=== PATIENT | female | born 1950 | race Caucasian/White ===

== ENCOUNTER → 2024-03-04 | Outpatient (CLI) | payer MEDICARE, BC, SELFPAY ==
[2024-03-04 18:07] LABS: Basophils # (Auto) 0.1 Thou/mm3 (0.0-0.2); Basophils % (Auto) 1 % (0-2.5); Eosinophils # (Auto) 0.1 Thou/mm3 (0.0-0.5); Eosinophils % (Auto) 1 % (0-10); Hematocrit 36.3 % (36.0-46.0); Hemoglobin 11.3 g/dL (12.0-16.0); Immature Granulocytes % (Auto) 1 % (0-0); Immature Granulocytes Auto 0.05 Thou/mm3 (0.00-0.00); Lymphocytes % (Auto) 28 % (10-50); Mean Corpuscular HGB Conc 31.1 g/dl (31.0-37.0); Mean Corpuscular Hemoglobin 24.8 pg (25.0-35.0); Mean Corpuscular Volume 80 fL (80-100); Monocytes # (Auto) 0.9 Thou/mm3 (0.0-0.8); Monocytes % (Auto) 9 % (0-12); Neutrophils # (Auto) 6.4 Thou/mm3 (1.8-7.7); Neutrophils % (Auto) 61 % (37-80); Nucleated Red Blood Cell % 0 /100 WBC (0); Platelet Count 385 Thou/mm3 (140-440); Red Blood Count 4.56 Miln/mm3 (4.00-5.20); White Blood Count 10.6 Thou/mm3 (3.6-11.0)
[2024-03-04 18:21] LABS: Albumin, Serum 4.6 gm/dL (3.4-4.8); Anion Gap 8 (7-16); BUN/Creatinine Ratio 28 Ratio (12-20); Blood Urea Nitrogen 31 mg/dL (9-23); Calcium 8.1 mg/dL (8.3-10.6); Calcium (Corrected) 8.1 mg/dL (8.5-10.1); Carbon Dioxide 31.8 mMol/L (20.0-31.0); Chloride 97 mMol/L (98-107); Creatinine (Component) 1.1 mg/dL (0.6-1.3); Glucose 98 mg/dL (74-106); Osmolality,Calculated 280 (275-295); Phosphorous 5.2 mg/dL (2.4-5.1); Potassium 4.5 mMol/L (3.4-5.1); Sodium 137 mMol/L (136-145); eGFR 53 See Note
[2024-03-06 11:02] LABS: Vitamin D 25 Hydroxy Total 38.5 ng/mL (7.3-40.2)
== END | disposition home or self-care (01) ==
LOC: COPL 16:51
PROVIDERS: PCP Family Medicine; Referring Provider Internal Medicine; Visit Provider Internal Medicine
DX: I12.9 Hypertensive chronic kidney disease with stage 1 through stage 4 chronic kidney disease, or unspecified chronic kidney disease (principal); N18.31 Chronic kidney disease, stage 3a; E83.51 Hypocalcemia
CPT/HCPCS: 36415; 80069; 82306; 85025

== ENCOUNTER → 2024-03-21 | Outpatient (CLI) | payer MEDICARE, BC, SELFPAY ==
[2024-03-21 18:24] LABS: Parathyroid Hormone Intact 32.9 pg/ml (18.5-88.0)
[2024-03-21 18:28] LABS: Alanine Aminotransferase 28 U/L (10-49); Albumin, Serum 4.8 gm/dL (3.4-4.8); Albumin/Globulin Ratio 1.9 (1.2-2.2); Alkaline Phosphatase 127 U/L (46-116); Anion Gap 8 (7-16); Aspartate Amino Transferase 28 U/L (0-34); BUN/Creatinine Ratio 34 Ratio (12-20); Bilirubin,Total 0.2 mg/dL (0.3-1.2); Blood Urea Nitrogen 37 mg/dL (9-23); Calcium 8.6 mg/dL (8.3-10.6); Calcium (Corrected) 8.6 mg/dL (8.5-10.1); Carbon Dioxide 29.7 mMol/L (20.0-31.0); Chloride 97 mMol/L (98-107); Creatinine (Component) 1.1 mg/dL (0.6-1.3); Free T4 (Free Thyroxine) 1.03 ng/dL (0.89-1.76); Globulin 2.5 gm/dL (2.3-3.5); Glucose 78 mg/dL (74-106); Osmolality,Calculated 277 (275-295); Potassium 3.9 mMol/L (3.4-5.1); Sodium 135 mMol/L (136-145); Thyroid Stimulating Hormone 5.14 uIU/mL (0.55-4.78); Total Protein 7.3 gm/dL (5.7-8.2); Vitamin D 25 Hydroxy Total 39.2 ng/mL (7.3-40.2); eGFR 53 See Note
[2024-03-27 06:46] LABS: T3,Total* 68 ng/dL (76-181)
== END | disposition home or self-care (01) ==
PROVIDERS: PCP Family Medicine; Referring Provider Nurse Practitioner Family; Visit Provider Nurse Practitioner Family
DX: E21.3 Hyperparathyroidism, unspecified (principal); E06.3 Autoimmune thyroiditis
CPT/HCPCS: 36415; 80053; 82306; 83970; 84439; 84443; 84480

== ENCOUNTER 2024-04-04 16:54 | Emergency (ER) | payer MEDICARE, BC, SELFPAY ==
[2024-04-04 16:55] VITALS: PULSE 88; RESP 20; O2SAT 98
[2024-04-04 17:04] VITALS: BP 116/74; PULSE 86; RESP 20; TEMP 37.1; O2SAT 96
--- NOTE | 2024-04-04 17:33 | XR_ITS ---
Examination: PA lateral chest 2 views Technique: Upright PA lateral chest 2 views Exam date and time: April 04, 1999 2517.7 hours Comparison June 02, 2017 Indications: Fever coughing beginning 2 weeks ago. Findings: Minor prominence of ventricle Moderate hyperexpansion Mild prominence main pulmonary arteries Accentuation basilar bronchovascular markings. No lobar pneumonia Significant osteopenia Impression: COPD Basilar bronchitis pattern Suspicious for pulmonary artery hypertension
--- NOTE | 2024-04-04 17:34 | EDRME_ITS ---
Rapid Medical Screening Exam [facility] Arrival date/time: 04/04/24 16:54 74-year-old female with a history of hypertension, hypothyroidism, presents to the emergency room with a chief complaint of cough, congestion, body aches, and shortness of breath x 3 days. I have greeted and performed a focused initial assessment of this patient. A comprehensive ED assessment and evaluation of the patient, analysis of all test results, and completion of the medical decision making process will be conducted by additional ED providers. Chief Complaint: Flu Like Symptoms Vital signs: Vital Signs Temperature 98.7 F 04/04/24 17:04 Pulse Rate 86 04/04/24 17:04 Respiratory Rate 20 04/04/24 17:04 Blood Pressure 116/74 04/04/24 17:04 Pulse Oximetry (%) 96 04/04/24 17:04 Oxygen Delivery Method Room Air 04/04/24 17:04 Vital signs reviewed by provider: Yes
[2024-04-04] MEDS: ALBUTEROL/IPRATROPIUM (Duoneb) RT SOL 3 ML NEBU INH (18:11)
[2024-04-04 18:13] VITALS: PULSE 77; RESP 18; O2SAT 99
--- NOTE | 2024-04-04 18:31 | EDNOTE_ITS ---
Upper Respiratory Inf. RME/HPI General Chief Complaint: Flu Like Symptoms Stated Complaint: FLU LIKE SYMPTOMS Time Seen by Provider: 04/04/24 18:25 Arrival date/time: 04/04/24 16:54 RME / HPI RME / HPI Narrative: 74-year-old female with a history of hypertension, hypothyroidism, presents to the emergency room with a chief complaint of cough, congestion, body aches, and shortness of breath x 3 days. Severity of symptoms moderate. Patient denies any fever. Denies any other complaints. No medications taken prior to arrival. Related Data Home Medications ?Medication ?Instructions ?Recorded ?Confirmed DIAZIDE/ HCTZ 1 tab PO DAILY ##0 08/24/12 06/02/17 FUROSET 1 tab PO Q6-8 HRS ##0 06/02/17 alprazolam 0.25 mg tablet 0.25 mg PO HS ##0 08/24/12 0 06/02/17 benazepril 40 mg tablet (Lotensin) 40 mg PO BID ##0 06/02/17 cyclobenzaprine 10 mg tablet 10 mg PO O3NOKMC ##0 07/2906/02/17 (Flexeril) levothyroxine 75 mcg tablet 75 mcg PO DAily ##0 06/02/17 (Levoxyl) potassium chloride 20 mEq 20 meq PO BID ##0 08/24/12 0 06/02/17 tablet,extended release(part/cryst) warfarin 10 mg tablet (Coumadin) 10 mg PO DAILY ##0 06/02/17 amlodipine 10 mg tablet (Norvasc) 10 mg PO QDAY #0 tab s 09/10/13 06/02/17 warfarin 5 mg tablet (Coumadin) See Rx Instructions .R oute .COMPLEX 06/02/17 Previous Rx's ?Medication ?Instructions ?Recorded azithromycin 250 mg tablet See Rx Instructions PO .COM PLEX #6 01/18/18 tabs benzonatate 100 mg capsule 100 mg PO QID PRN cough #60 caps 01/18/18 (Tessalon Perles) avgjwyfbcc-rqmrgwuaentdv-uyazylsx 1 cap PO Q4H PRN ryan n #4 caps 01/18/18 50 mg-300 mg-40 mg capsule (Fioricet) albuterol sulfate 2.5 mg/3 mL 2.5 mg (3 mL) inhalation Q4H PRN 04/04/24 (0.083 %) solution for nebulization shortness of breat h or wheezing #90 mL albuterol sulfate 2.5 mg/3 mL 2.5 mg (3 mL) inhalation QID PRN 04/04/24 (0.083 %) solution for nebulization shortness of breat h or wheezing #90 mL Allergies Allergy/AdvReac Type Severity Reaction Status Date / Time aspirin Allergy Severe GI UPSET Verified 07/04/22 09:41 codeine Allergy Severe GI UPSET Verified 07/04/22 09:41 meperidine Allergy Severe GI UPSET Verified 07/04/22 09:41 morphine Allergy Severe INSANE Verified 07/04/22 09:41 NSAIDS (Non-Steroidal Allergy Severe GI UPSET Verified 07/04/22 09:41 Anti-Inflamma prednisone Allergy Severe Gastrointestinal Verified 07/04/22 09:41 Upset Review of Systems Review of Systems Narrative Review of Systems: Review of system reviewed and within normal limits except mentioned in HPI ED Exam Narrative Physical exam: VITAL SIGNS: Reviewed. GENERAL APPEARANCE: Alert and interactive, follows commands, no acute distress, HEAD AND FACE: Non-traumatic. ENT: PERRL, pink conjunctivitis, eyelid no trauma, Mucous membrane moist. NECK: Supple, nontender, no nuchal rigidity. CHEST: No tenderness, no crepitus, no paradoxical movement, no retractions. LUNGS:Symmetric, no rales, no wheezing, no ronchi, no stridor, decreased breath sounds bilaterally. HEART: Regular rate, regular rhythm, no murmur, no gallops. ABDOMEN: Soft, positive bowel sounds, nondistended, no guarding, nontender, no rebound, no masses, RECTAL: Deferred. GENITAL: Deferred. NEUROLOGICAL: Gross motor function intact sensory function intact, Appropriate for age. MUSCULOSKELETAL: low back nontender, full range of motion. EXTREMITIES: Nontender, full range of motion. SKIN: Color pink, dry, no rash, no lacerations, no abrasions, no contusions. LYMPHATICS: Deferred. Course Quality Measures none Orders Category Date Time Status Bedside COVID-19 Antigen Test NOW Care 04/04/24 17:33 Active Bedside Influenza A&B Antigen Test NOW Care 04/04/24 17:33 Active XR chest 2V Stat Exams 04/04/24 17:33 Completed Albuterol/Ipratr Rt Winnie [Duoneb Rt Winnie] Med 04/04/24 17:33 Discontinued 3 ml INH X1 ONE Dexamethasone Inj [Decadron Inj] Med 04/04/24 18:30 Discontinued 10 mg IM X1 ONE DiphenhydrAMINE [Benadryl] Med 04/04/24 18:30 Discontinued 25 mg PO X1 ONE Famotidine [Pepcid] Med 04/04/24 18:30 Discontinued 40 mg PO X1 ONE Vital Signs Vital signs: Vital Signs Temperature 98.7 F 04/04/24 17:04 Pulse Rate 86 04/04/24 17:04 Respiratory Rate 20 04/04/24 17:04 Blood Pressure 116/74 04/04/24 17:04 Pulse Oximetry (%) 96 04/04/24 17:04 Oxygen Delivery Method Room Air 04/04/24 17:04 Upper Respiratory Infection MDM Narrative MDM Narrative:: 74-year-old female with a history of hypertension, hypothyroidism, presents to the emergency room with a chief complaint of cough, congestion, body aches, and shortness of breath x 3 days. Severity of symptoms moderate. Patient denies any fever. Denies any other complaints. No medications taken prior to arrival. Patient tested negative for influenza and COVID-19. Chest x-ray came back with COPD pattern. Otherwise no pneumonia no infiltrates no hemothorax or pneumothorax noted. Patient was given DuoNeb breathing treatment and Decadron IM with significant pulmonary symptoms. Currently satting 99% on room air Patient appears nontoxic and hemodynamically stable. Patient discharged home and instructed to follow-up with primary care provider in 24 to 48 hours. Instructed to return to the emergency department immediately if worsening of symptoms Patient data External records reviewed:: None Clinical information provided by:: none Social determinants that could affect healthcare access:: none Patient has the following chronic illnesses:: COPD How is presenting disease/condition affected by chronic disease/condition?: exacerbated by Evaluation data The following diagnostics were reviewed and interpreted by me:: lab results and radiology exam(s) Lab and/or radiology exams considered but not ordered:: None Interpretation Summary: See results MDM Medications / Prescriptions Medications or Prescriptions considered but not ordered:: None Medication administrations:: Medication Administration History Discontinued Medications Albuterol/Ipratropium (Albuterol/Ipratropium (Duoneb) Rt Winnie 3 Ml Nebu) 3 ml INH X1 ONE Stop: 04/04/24 17:34 Last Admin: 04/04/24 18:11 Dose: 3 ml Documented By: MARANDA Dexamethasone Sodium Phosphate (Dexamethasone Sod Phos Inj 10 Mg/Ml Vial) 10 mg IM X1 ONE Stop: 04/04/24 18:31 Last Admin: 04/04/24 18:49 Dose: 10 mg Documented By: OA Diphenhydramine HCl (Diphenhydramine 25 Mg Capsule) 25 mg PO X1 ONE Stop: 04/04/24 18:31 Last Admin: 04/04/24 18:50 Dose: Not Given Documented By: OA Non-Admin Reason: Patient Refused Famotidine (Famotidine 20 Mg Tablet) 40 mg PO X1 ONE Stop: 04/04/24 18:31 Last Admin: 04/04/24 18:50 Dose: Not Given Documented By: OA Non-Admin Reason: Patient Refused DuoNeb, Decadron Consultations Consultation(s) initiated? (list below): No Diagnosis Upper Respiratory Differential Diagnosis: upper respiratory infection and influenza Most likely diagnosis given after review of the tests above:: Shortness of breath Admission Indicated Admission indicated?: not indicated Explain why admission is indicated or not indicated:: Stable Admission Request Was there a request for admission?: No Disposition Plan Disposition Plan: Discharge Discharge Attestation Discharge Attestation: The patient was given an opportunity to ask questions and understood the discharge instructions. Discharge instructions specifically effects, indications for sooner follow up or return to the emergency department, and the expected course of current diagnosis. Patient condition: Stable Discharge Plan Plan Patient Disposition: HOME (Self Care) Disposition Comment: stable Prescriptions/Referrals Prescriptions/Med Rec: New albuterol sulfate 2.5 mg /3 mL (0.083 %) solution for nebulization 2.5 mg inhalation Q4H PRN (Reason: shortness of breath or wheezing) Qty: 90 0RF albuterol sulfate 2.5 mg /3 mL (0.083 %) solution for nebulization 2.5 mg inhalation QID PRN (Reason: shortness of breath or wheezing) Qty: 90 0RF No Action cyclobenzaprine [Flexeril] 10 MG tablet 10 mg PO [id number] Qty: 0 warfarin [Coumadin] 10 MG tablet 10 mg PO DAILY Qty: 0 levothyroxine [Levoxyl] 75 MCG tablet 75 mcg PO DAily Qty: 0 alprazolam 0.25 MG tablet 0.25 mg PO HS Qty: 0 potassium chloride 20 MEQ tablet,ER particles/crystals 20 meq PO BID Qty: 0 benazepril [Lotensin] 40 MG tablet 40 mg PO BID Qty: 0 FUROSET 1 tab PO Q6-8 HRS Qty: 0 DIAZIDE/ HCTZ 1 tab PO DAILY Qty: 0 amlodipine [Norvasc] 10 MG tablet 10 mg PO QDAY Qty: 0 warfarin [Coumadin] 5 mg Tablet See Rx Instructions .ROUTE .COMPLEX Rx Instructions: 5 mg orally azithromycin 250 mg tablet See Rx Instructions .ROUTE .COMPLEX Qty: 6 0RF Rx Instructions: take 500 mg first day then 250 mg for next 4 days benzonatate [Tessalon Perles] 100 mg capsule 100 mg PO QID PRN (Reason: cough) Qty: 60 0RF befvawvzfb-rncaljqappbzi-jluq [Fioricet] 50-300-40 mg capsule 1 cap PO Q4H PRN (Reason: pain) Qty: 4 0RF Problem List Clinical Impression: Shortness of breath Patient/Caregiver Discharge Instructions Discharge Activity: activity as tolerated Education Materials: ED Shortness of Breath (Dyspnea) Additional Instructions: Thank you for the opportunity for serving you today. You are stable for discharged . You are advised to: Follow-up with your PCP in 1 to 2 days Return to ED for worsening of symptoms Increase oral fluids Take medication as prescribed Print Language: Uzbek Stand Alone Forms: Nadia Award Info., Patient Portal Info Letter PA/STATION INSTALLER AND REPAIRER Supervising Physician PA/STATION INSTALLER AND REPAIRER Supervising Physician: MD Antione
[2024-04-04] MEDS: DEXAMETHASONE SOD PHOS INJ 10 MG/ML VIAL IM (18:49)
== END 2024-04-04 19:41 | disposition home or self-care (01) ==
LOC: SERX 19:37
PROVIDERS: Emergency Provider Emergency Medicine; PCP Family Medicine
DX: R06.02 Shortness of breath (principal); J44.9 Chronic obstructive pulmonary disease, unspecified; I10 Essential (primary) hypertension; E03.9 Hypothyroidism, unspecified
CPT/HCPCS: 71046; 94640; 96372; 99283; A9270; J1100

== ENCOUNTER → 2024-05-07 | Outpatient (CLI) | payer MEDICARE, BC, SELFPAY ==
[2024-05-07 18:04] LABS: Parathyroid Hormone Intact 39.5 pg/ml (18.5-88.0)
[2024-05-07 18:06] LABS: Albumin, Serum 4.3 gm/dL (3.4-4.8); Anion Gap 6 (7-16); BUN/Creatinine Ratio 29 Ratio (12-20); Blood Urea Nitrogen 32 mg/dL (9-23); Calcium 8.7 mg/dL (8.3-10.6); Calcium (Corrected) 8.7 mg/dL (8.5-10.1); Carbon Dioxide 31.4 mMol/L (20.0-31.0); Chloride 99 mMol/L (98-107); Creatinine (Component) 1.1 mg/dL (0.6-1.3); Glucose 72 mg/dL (74-106); Osmolality,Calculated 277 (275-295); Phosphorous 4.8 mg/dL (2.4-5.1); Potassium 5.1 mMol/L (3.4-5.1); Sodium 136 mMol/L (136-145); eGFR 53 See Note
== END | disposition home or self-care (01) ==
LOC: COPL 16:53
PROVIDERS: PCP Family Medicine; Referring Provider Internal Medicine; Visit Provider Internal Medicine
DX: I12.9 Hypertensive chronic kidney disease with stage 1 through stage 4 chronic kidney disease, or unspecified chronic kidney disease (principal); N18.31 Chronic kidney disease, stage 3a; E83.51 Hypocalcemia; D50.9 Iron deficiency anemia, unspecified
CPT/HCPCS: 36415; 80069; 83970

== ENCOUNTER → 2024-10-07 | Outpatient (CLI) | payer MEDICARE, BC, SELFPAY ==
[2024-10-07 17:47] LABS: Basophils # (Auto) 0.1 Thou/mm3 (0.0-0.2); Basophils % (Auto) 1 % (0-2.5); Eosinophils # (Auto) 0.1 Thou/mm3 (0.0-0.5); Eosinophils % (Auto) 1 % (0-10); Hematocrit 36.5 % (36.0-46.0); Hemoglobin 11.4 g/dL (12.0-16.0); Immature Granulocytes Auto 0.05 Thou/mm3 (0.00-0.00); Lymphocytes # (Auto) 3.0 Thou/mm3 (1.0-4.8); Lymphocytes % (Auto) 27 % (10-50); Mean Corpuscular HGB Conc 31.2 g/dl (31.0-37.0); Mean Corpuscular Hemoglobin 24.5 pg (25.0-35.0); Mean Corpuscular Volume 78 fL (80-100); Monocytes # (Auto) 1.0 Thou/mm3 (0.0-0.8); Monocytes % (Auto) 9 % (0-12); Neutrophils # (Auto) 6.8 Thou/mm3 (1.8-7.7); Neutrophils % (Auto) 61 % (37-80); Nucleated Red Blood Cell # 0.00 Thou/mm3 (0.00-0.00); Nucleated Red Blood Cell % 0 /100 WBC (0); Platelet Count 392 Thou/mm3 (140-440); RDW Standard Deviation 47.1 fL (36.4-46.3); Red Blood Count 4.66 Miln/mm3 (4.00-5.20); White Blood Count 11.0 Thou/mm3 (3.6-11.0)
[2024-10-07 18:01] LABS: Parathyroid Hormone Intact 38.5 pg/ml (18.5-88.0)
[2024-10-07 18:02] LABS: Iron 18 mcg/dL (50-170); Percent Iron Saturation 4 % (20-55); Total Iron Binding Capacity 403 mcg/dL (250-425); Unsaturated Iron Binding 385 (225-295)
[2024-10-07 18:05] LABS: Vitamin D 25 Hydroxy Total 38.4 ng/mL (7.3-40.2)
[2024-10-07 18:07] LABS: Alanine Aminotransferase 17 U/L (10-49); Albumin, Serum 4.4 gm/dL (3.4-4.8); Albumin/Globulin Ratio 2.0 (1.2-2.2); Alkaline Phosphatase 100 U/L (46-116); Anion Gap 11 (7-16); Aspartate Amino Transferase 26 U/L (0-34); BUN/Creatinine Ratio 29 Ratio (12-20); Bilirubin,Total 0.2 mg/dL (0.3-1.2); Blood Urea Nitrogen 32 mg/dL (9-23); Calcium 8.1 mg/dL (8.3-10.6); Calcium (Corrected) 8.1 mg/dL (8.5-10.1); Carbon Dioxide 28.2 mMol/L (20.0-31.0); Chloride 97 mMol/L (98-107); Creatinine (Component) 1.1 mg/dL (0.6-1.3); Free T4 (Free Thyroxine) 1.16 ng/dL (0.89-1.76); Globulin 2.2 gm/dL (2.3-3.5); Glucose 85 mg/dL (74-106); Osmolality,Calculated 277 (275-295); Phosphorous 5.4 mg/dL (2.4-5.1); Potassium 3.8 mMol/L (3.4-5.1); Sodium 136 mMol/L (136-145); Thyroid Stimulating Hormone 3.69 uIU/mL (0.55-4.78); Total Protein 6.6 gm/dL (5.7-8.2); eGFR 53 See Note
[2024-10-11 06:45] LABS: T3,Total* 79 ng/dL (76-181)
== END | disposition home or self-care (01) ==
LOC: COPL 16:41
PROVIDERS: PCP Family Medicine; Referring Provider Internal Medicine; Visit Provider Nurse Practitioner Family
DX: E06.3 Autoimmune thyroiditis (principal); E21.3 Hyperparathyroidism, unspecified; I12.9 Hypertensive chronic kidney disease with stage 1 through stage 4 chronic kidney disease, or unspecified chronic kidney disease; N18.31 Chronic kidney disease, stage 3a; D50.9 Iron deficiency anemia, unspecified
CPT/HCPCS: 36415; 80053; 82306; 83540; 83550; 83970; 84100; 84439; 84443; 84480; 85025

== ENCOUNTER 2024-12-25 08:35 | Inpatient (IN) | payer MEDICARE, BC, SELFPAY ==
[2024-12-25] VITALS (10 sets, daily range): BP systolic 121–152; BP diastolic 72–95; PULSE 67–94; RESP 16–99; TEMP 36.6–37.1; O2SAT 96–97; BMI 34.7
--- NOTE | 2024-12-25 08:43 | EKG_ITS ---
[facility] Test Date: 2024-12-25 Pat Name: SONU STRONG Department: Room: - Gender: Female Die Cast Operator: : [id number] Requested By: Edwardo Tirado Order Number: [id number] Reading MD: Edwardo Tirado Measurements Intervals [place] Rate: 76 P: 27 SD: 172 QRS: 1 QRSD: 104 T: 31 QT: 412 QTc: 465 Interpretive Statements SINUS RHYTHM WITH OCCASIONAL VENTRICULAR PREMATURE COMPLEXES POSSIBLE LEFT ATRIAL ENLARGEMENT [-0.1mV P-WAVE IN V1/V2] Compared to ECG 07/04/2022 10:20:27 Ventricular premature complex(es) now present /store/S0/[id number]/ecg/[id number].pdf
--- NOTE | 2024-12-25 08:43 | XR_ITS ---
EXAMINATION: AP chest single view TECHNIQUE: AP portable upright chest single view Date and time: December 25, 2024, 0928 hours, comparison April 04, 2024 INDICATIONS: Shortness of breath syncopal episode today. FINDINGS: Fat pad at the right cardiophrenic angle Normal heart size No pneumonia or pulmonary edema Prominent osteopenia IMPRESSION: No active disease
--- NOTE | 2024-12-25 08:43 | XR_ITS ---
Examination: CT brain head without contrast. 2-D sagittal coronal reconstructions Date and time of exam: December 25, 2024, 0905 hours INDICATIONS: Syncopal episode this morning CTDI: vol (mGy): 51.3 DLP: (mGycm): 1025 Technique: Multiple CT axial sections of the brain have been obtained, 5 mm slice thickness. Contrast has not been administered. 2-D sagittal, coronal reconstructions have been obtained Low dose protocols were performed. One or more of the following dose reduction techniques were used; automated exposure control, adjustment of the mA and/or KV according to patient size, use of iterative reconstruction technique. Findings: No significant ventricular enlargement. Intra-axial or extra-axial hemorrhage density is not seen. No mass effect or midline shift Basal cisterns are not remarkable. Fourth ventricle is midline. Cranial vault intact. Impression: Negative for acute hemorrhage, mass effect or midline shift Advise clinical correlation and follow-up accordingly
--- NOTE | 2024-12-25 08:44 | PD.EDSYNC ---
ED Syncope RME/HPI General Chief Complaint: Dizziness Stated Complaint: DIZZINESS Time Seen by Provider: 12/25/24 08:58 Arrival date/time: 12/25/24 08:35 RME / HPI RME / HPI narrative: See [facility] for Dr. Hughes's HPI documentation. Related Data Home Medications ?Medication ?Instructions ?Recorded ?Confirmed DIAZIDE/ HCTZ 1 tab PO DAILY ##0 08/24/12 06/02/17 FUROSET 1 tab PO Q6-8 HRS ##0 08/24/12 06/02/17 alprazolam 0.25 mg tablet 0.25 mg PO HS ##0 08/24/12 06/02/17 benazepril 40 mg tablet (Lotensin) 40 mg PO BID ##0 08/24/12 06/02/17 cyclobenzaprine 10 mg tablet 10 mg PO [id number] ##0 08/24/12 06/02/17 (Flexeril) levothyroxine 75 mcg tablet 75 mcg PO DAily ##0 08/24/12 06/02/17 (Levoxyl) potassium chloride 20 mEq 20 meq PO BID ##0 08/24/12 06/02/17 tablet,extended release(part/cryst) warfarin 10 mg tablet (Coumadin) 10 mg PO DAILY ##0 08/24/12 06/02/17 amlodipine 10 mg tablet (Norvasc) 10 mg PO QDAY #0 tabs 09/10/13 06/02/17 warfarin 5 mg tablet (Coumadin) See Rx Instructions .Route .COMPLEX 06/02/17 06/02/17 Previous Rx's ?Medication ?Instructions ?Recorded azithromycin 250 mg tablet See Rx Instructions PO .COMPLEX #6 01/18/18 tabs benzonatate 100 mg capsule 100 mg PO QID PRN cough #60 caps 01/18/18 (Tessalon Perldeborah) jkhwwxnsrh-juqljmwlelvij-sfrlfypj 1 cap PO Q4H PRN pain #4 caps 01/18/18 50 mg-300 mg-40 mg capsule (Fioricet) albuterol sulfate 2.5 mg/3 mL 2.5 mg (3 mL) inhalation Q4H PRN 04/04/24 (0.083 %) solution for nebulization shortness of breath or wheezing #90 mL albuterol sulfate 2.5 mg/3 mL 2.5 mg (3 mL) inhalation QID PRN 04/04/24 (0.083 %) solution for nebulization shortness of breath or wheezing #90 mL Allergies Allergy/AdvReac Type Severity Reaction Status Date / Time aspirin Allergy Severe GI UPSET Verified 07/04/22 09:41 codeine Allergy Severe GI UPSET Verified 07/04/22 09:41 meperidine Allergy Severe GI UPSET Verified 07/04/22 09:41 morphine Allergy Severe INSANE Verified 07/04/22 09:41 NSAIDS (Non-Steroidal Allergy Severe GI UPSET Verified 07/04/22 09:41 Anti-Inflamma prednisone Allergy Severe Gastrointestinal Verified 07/04/22 09:41 Upset Review of Systems Review of Systems Systems Reviewed: All systems reviewed, normal except as documented Past Medical History Past Medical History NEUROLOGIC: Positive Cerebrovascular Accident CARDIAC: Positive Hypertension ENDOCRINE: Positive Hypothyroidism Surgical History SURGICAL: Positive Endocrine Surgery, Knee Sx and Hysterectomy Social History SMOKING STATUS: Never smoker ED Exam Narrative Physical exam: See MDM for Dr. Hughes's physical exam documentation. Course Quality Measures none Orders Category Date Time Status Bedside COVID-19 Antigen Test NOW Care 12/25/24 08:41 Active COVID-19 Screening Questionnaire NOW Care 12/25/24 11:39 Active Decision to Admit X1 Care 12/25/24 11:39 Active EKG (ED ONLY) *Do not use* NOW Care 12/25/24 08:43 Completed Orthostatic Vitals NOW Care 12/25/24 08:41 Active Saline [Insert IV] NOW Care 12/25/24 08:41 Active Straight [In and Out Catheter] X1 Care 12/25/24 08:41 Active Consult to Cardiology Stat Cons 12/25/24 11:10 Ordered CA echo doppler complete Stat Exams 12/25/24 11:[address] head/brain wo con Stat Exams 12/25/24 08:43 Completed EKG (ED Only) Stat Exams 12/25/24 08:43 Draft XR chest 1V portable Stat Exams 12/25/24 08:43 Completed BNP [B-Type Natriuretic Peptide] Stat Lab 12/25/24 09:13 Completed Beta Hydroxybutyrate Stat Lab 12/25/24 09:13 Completed Bilirubin,Direct Stat Lab 12/25/24 09:13 Completed Blood Culture (Lab) Stat Lab 12/25/24 09:26 Received CBC Stat Lab 12/25/24 09:13 Completed CMP [Comprehensive Metabolic Panel] Stat Lab 12/25/24 09:13 Completed CRP [C-Reactive Protein] Stat Lab 12/25/24 09:13 Completed D-Dimer Stat Lab 12/25/24 09:13 Completed ESR [Sed Rate (ESR)] Stat Lab 12/25/24 09:13 Completed Influenza A & B Rapid Panel Stat Lab 12/25/24 09:26 Completed Lactate (Lactic Acid) Stat Lab 12/25/24 09:13 Completed Lipase Stat Lab 12/25/24 09:13 Completed Magnesium Stat Lab 12/25/24 09:13 Completed PT [Prothrombin Time with INR] Stat Lab 12/25/24 09:13 Completed PTT [Partial Thromboplastin Time] Stat Lab 12/25/24 09:13 Completed Procalcitonin Stat Lab 12/25/24 09:13 Completed TSH [Thyroid Stimulating Hormone] Stat Lab 12/25/24 09:13 Completed Troponin I Stat Lab 12/25/24 09:13 Completed UA, C/S IF [Urinalysis, C/S if Indicated] Stat Lab 12/25/24 10:38 Completed Urine Culture Stat Lab 12/25/24 10:38 Received ALPRazoLAM [Xanax] Med 12/25/24 08:42 Discontinued 0.25 mg PO X1 ONE Aspirin Chew Med 12/25/24 11:08 Discontinued 324 mg PO X1 ONE Aspirin [Ecotrin] Med 12/26/24 09:00 Active 81 mg PO QDAY Atorvastatin Calcium [Lipitor] Med 12/25/24 21:00 Active 80 mg PO HS Heparin/D5w 25K 250 ML Ivpb [Heparin in D5w Ivpb] Med 12/25/24 11:30 Active 25,000 unit in 250 ml IV 12 units/kg/hr Metoprolol Tartrate [Lopressor] Med 12/25/24 11:45 Active 25 mg PO BID Ondansetron Inj [Zofran Inj] Med 12/25/24 08:42 Discontinued 4 mg IVP X1 ONE Sodium Chloride 0.9% 1000 ml [Ns] 1,000 ml Med 12/25/24 08:42 Discontinued IV 999 mls/hr cefTRIAXone/D5w 1gm IV premix [Rocephin/D5w 1gm IV Med 12/25/24 11:16 Discontinued premix] 1 gm in 50 ml IV X1 Vital Signs Vital signs: Vital Signs Temperature 98 F 12/25/24 09:21 Pulse Rate 80 12/25/24 09:21 Respiratory Rate 18 12/25/24 09:21 Blood Pressure 136/85 H 12/25/24 09:21 Pulse Oximetry (%) 96 12/25/24 09:21 Oxygen Delivery Method Room Air 12/25/24 09:21 Pulse ox is 96% on room air which is adequate. Syncope MDM Narrative MDM Narrative:: This section includes all my notes and documentations, including HPI, PE, and ED course. 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 It is possible she had a complete syncopal episode. While sitting, she had sudden multiple symptoms, including headache and dizziness and chest tightness and palpitations. She didn't fall. She feels moderately better currently. No speech or visual impairment. No asymmetrical loss of power in the arms or legs. No other complaints. ROS: All negative except as documented in HPI. Physical Exam: General: Alert and oriented. Appears anxious. Eyes: Conjunctivae and lids clear. EOMI. PERRL. ENT: No nasal congestion. Neck: Supple. No carotid bruit. No JVD. Heart: RRR. Lungs: No respiratory distress. Good air movement. No rhonchi, wheezing, rales. Abdomen: Soft and nontender. Legs: No clubbing, cyanosis, edema. Skin: Warm and dry. Neuro: Alert and oriented X 3. Cranial Nerves II-XII grossly intact. No peripheral motor deficits. I reviewed all diagnostic test results: My interpretation of the EKG is: Sinus rhythm (76 bpm) with nonspecific ST-T changes. My interpretation of the chest x-ray is: NAD. My review of the CT report is: NAD. Blood tests remarkable for troponin 0.114. UA showed positive nitrite, positive leukocyte esterase, 41 WBC, and bacteria. Covid/Influenza are negative. At this point, diagnoses include: NSTEMI UTI Treatment here included: IV fluid Oral Xanax 0.25 mg as a trial prior to diagnostic tests. Rocephin 1 gm IV Heparin drip Patient felt better. 11:10 I discussed the case with linotype machinist apprentice Dr. Zaragoza. About the presentation and exam and diagnostics and treatments here. And need of further care in the hospital. Recommended holding the Warfarin and starting patient on Heparin drip (not heparin bolus). 11:15 I discussed the case with our hospitalist. About the presentation and exam and diagnostics and treatments here. And need of further care in the hospital. Will accept the patient. Edwardo Hughes MD Patient data External records reviewed:: [facility] previous records Clinical information provided by:: patient Social determinants that could affect healthcare access:: none Patient has the following chronic illnesses:: Hypertension, hypothyroidism How is presenting disease/condition affected by chronic disease/condition?: exacerbated by Evaluation data The following diagnostics were reviewed and interpreted by me:: lab results, radiology exam(s) and EKG tracing(s) (My interpretation of the EKG is: Sinus rhythm (76 bpm) with nonspecific ST-T changes. Edwardo Hughse MD) Lab and/or radiology exams considered but not ordered:: None Interpretation Summary: I reviewed all diagnostic test results: My interpretation of the EKG is: Sinus rhythm (76 bpm) with nonspecific ST-T changes. My interpretation of the chest x-ray is: NAD. My review of the CT report is: NAD. Blood tests remarkable for troponin 0.114. UA showed positive nitrite, positive leukocyte esterase, 41 WBC, and bacteria. Covid/Influenza are negative. Medications / Prescriptions Medications or Prescriptions considered but not ordered:: None Medication administrations:: Medication Administration History Acetaminophen (Acetaminophen 325 Mg Tablet) 650 mg PO Q6H PRN PRN Reason: Fever >101.5 Stop: 01/24/25 11:59 Aspirin (Aspirin Ec 81 Mg Tabec) 81 mg PO QDAY JIMMY Stop: 01/25/25 08:59 Atorvastatin Calcium (Atorvastatin Calcium 20 Mg Tablet) 80 mg PO HS JIMMY Stop: 01/24/25 20:59 Heparin Sodium/Dextrose (Heparin In D5w Ivpb) 25,000 unit in 250 mls @ 12.791 mls/hr IV .[id number] JIMMY; Protocol Stop: 01/08/25 11:29 Last Admin: 12/25/24 12:09 Dose: 12 units/kg/hr, 12.791 mls/hr Documented By: EF Co-signed By: MILLER Ceftriaxone Sodium/Dextrose (Rocephin/D5w 1gm Iv Premix) 1 gm in 50 mls @ 100 mls/hr IV QDAY [facility] Stop: 01/02/25 08:59 Metoprolol Tartrate (Metoprolol Tartrate 25 Mg Tablet) 25 mg PO BID [facility] Stop: 01/24/25 11:44 Last Admin: 12/25/24 12:10 Dose: 25 mg Documented By: EF Ondansetron HCl (Ondansetron Inj 2 Mg/Ml Inj 2 Ml) 4 mg IVP Q6H PRN; Protocol PRN Reason: NAUSEA OR VOMITING Stop: 01/24/25 11:59 Pantoprazole Sodium (Pantoprazole 40 Mg Tablet) 40 mg PO QDAY [facility] Stop: 01/25/25 08:59 Discontinued Medications Alprazolam (Alprazolam 0.25 Mg Tablet) 0.25 mg PO X1 ONE Stop: 12/25/24 08:43 Last Admin: 12/25/24 09:40 Dose: 0.25 mg Documented By: EF Aspirin (Aspirin 81 Mg Chew) 324 mg PO X1 ONE Stop: 12/25/24 11:09 Last Admin: 12/25/24 11:22 Dose: Not Given Documented By: EF Non-Admin Reason: Cancelled by Provider Sodium Chloride (Ns) 1,000 mls @ 999 mls/hr IV .Q1H1M ONE Stop: 12/25/24 09:42 Last Infusion: 12/25/24 10:41 Dose: Infused Documented By: Admin: 12/25/24 09:40 Dose: 999 mls/hr Documented By: EF Ceftriaxone Sodium/Dextrose (Rocephin/D5w 1gm Iv Premix) 1 gm in 50 mls @ 100 mls/hr IV X1 ONE Stop: 12/25/24 11:45 Last Infusion: 12/25/24 12:02 Dose: Infused Documented By: Admin: 12/25/24 11:28 Dose: 100 mls/hr Documented By: EF Ondansetron HCl (Ondansetron Inj 2 Mg/Ml Inj 2 Ml) 4 mg IVP X1 ONE; Protocol Stop: 12/25/24 08:43 Last Admin: 12/25/24 09:43 Dose: Not Given Documented By: EF Non-Admin Reason: Patient Refused Treatment here from me included: IV fluid Oral Xanax 0.25 mg as a trial prior to diagnostic tests. Rocephin 1 gm IV Heparin drip Consultations Consultation(s) initiated? (list below): Yes Consultation #1 (Physician, Specialty, Details): I discussed the case with linotype machinist apprentice Dr. Zaragoza. About the presentation and exam and diagnostics and treatments here. And need of further care in the hospital. Recommended holding the Warfarin and starting patient on Heparin drip (not heparin bolus). Time: 11:10 Consultation #2 (Physician, Specialty, Details): I discussed the case with our hospitalist. About the presentation and exam and diagnostics and treatments here. And need of further care in the hospital. Will accept the patient. Time: 11:15 Diagnosis Syncope Differential Diagnosis: syncope due to orthostatic hypotension, vasovagal syncope, pulmonary embolism and dehydration Most likely diagnosis given after review of the tests above:: NSTEMI UTI Admission Indicated Admission indicated?: indicated Explain why admission is indicated or not indicated:: NSTEMI Admission Request Was there a request for admission?: Yes Admission Attestation Admission request attestation: Discussed case with Hospitalist service regarding admission. Discussed patients ED course, exam findings, labs, and radiology results. Agreed to accept the patient for admission. Disposition Plan Disposition Plan: Admit Critical Care Time Critical Care Time Critical Care Time: Yes Total Critical Care Time (min.): 35 Attestation: Due to a high probability of clinically significant, life threatening deterioration, the patient required my highest level of preparedness to intervene emergently and I personally spent this critical care time directly and personally managing the patient. This critical care time included obtaining a history; examining the patient; ordering and review of studies; arranging urgent treatment with development of a management plan; evaluation of patient's response to treatment; frequent reassessment; and discussions with family and other providers. It was exclusive of separately billable procedures and treating other patients and teaching time. Edwardo Hughes MD Discharge Plan Plan Patient Disposition: Admit Acute Care w/in Hospital Problem List Clinical Impression: Non-ST elevation [place] (NSTEMI), UTI (urinary tract infection)
[2024-12-25 09:23] LABS: Lactate (Lactic Acid) 3.4 mMol/L (0.4-2.0)
[2024-12-25 09:25] LABS: Basophils # (Auto) 0.1 Thou/mm3 (0.0-0.2); Basophils % (Auto) 1 % (0-2.5); Eosinophils # (Auto) 0.1 Thou/mm3 (0.0-0.5); Eosinophils % (Auto) 1 % (0-10); Hematocrit 34.7 % (36.0-46.0); Hemoglobin 10.6 g/dL (12.0-16.0); Immature Granulocytes Auto 0.04 Thou/mm3 (0.00-0.00); Lymphocytes # (Auto) 2.6 Thou/mm3 (1.0-4.8); Lymphocytes % (Auto) 30 % (10-50); Mean Corpuscular HGB Conc 30.5 g/dl (31.0-37.0); Mean Corpuscular Hemoglobin 24.0 pg (25.0-35.0); Mean Corpuscular Volume 79 fL (80-100); Monocytes # (Auto) 0.8 Thou/mm3 (0.0-0.8); Monocytes % (Auto) 9 % (0-12); Neutrophils # (Auto) 5.1 Thou/mm3 (1.8-7.7); Neutrophils % (Auto) 59 % (37-80); Nucleated Red Blood Cell # 0.00 Thou/mm3 (0.00-0.00); Nucleated Red Blood Cell % 0 /100 WBC (0); Platelet Count 343 Thou/mm3 (140-440); RDW Standard Deviation 48.5 fL (36.4-46.3); Red Blood Count 4.42 Miln/mm3 (4.00-5.20); White Blood Count 8.6 Thou/mm3 (3.6-11.0)
[2024-12-25] MEDS: SODIUM CHLORIDE 0.9% 1000 ML 1,000 ML 999 ML IV (09:40)
[2024-12-25 09:44] LABS: B-Type Natriuretic Peptide 60 pg/mL (0-100)
[2024-12-25 09:50] LABS: INR 3.8 (0.9-1.3); Partial Thromboplastin Time 45.1 Seconds (22.0-36.0)
[2024-12-25 09:58] LABS: Prothrombin Time 36.4 Seconds (9.0-12.2)
[2024-12-25 10:00] LABS: Alanine Aminotransferase 12 U/L (10-49); Albumin, Serum 4.2 gm/dL (3.4-4.8); Albumin/Globulin Ratio 2.1 (1.2-2.2); Alkaline Phosphatase 107 U/L (46-116); Anion Gap 13 (7-16); Aspartate Amino Transferase 24 U/L (0-34); BUN/Creatinine Ratio 16 Ratio (12-20); Bilirubin,Direct < 0.1 mg/dL (0.0-0.3); Bilirubin,Total 0.3 mg/dL (0.3-1.2); Blood Urea Nitrogen 21 mg/dL (9-23); C-Reactive Protein 1.3 mg/dL (0.0-0.9); Calcium 8.1 mg/dL (8.3-10.6); Calcium (Corrected) 8.1 mg/dL (8.5-10.1); Carbon Dioxide 26.3 mMol/L (20.0-31.0); Chloride 103 mMol/L (98-107); Creatinine (Component) 1.3 mg/dL (0.6-1.3); Estimated Creatinine Clearance 49.4 mL/min (>60); Globulin 2.0 gm/dL (2.3-3.5); Glucose 128 mg/dL (74-106); Lipase 38 U/L (12-53); Magnesium 1.8 mg/dL (1.6-2.6); Osmolality,Calculated 288 (275-295); Potassium 4.0 mMol/L (3.4-5.1); Procalcitonin 0.11 ng/ml (0.0-0.49); Sodium 142 mMol/L (136-145); Thyroid Stimulating Hormone 2.09 uIU/mL (0.55-4.78); Total Protein 6.2 gm/dL (5.7-8.2); eGFR 43 See Note
[2024-12-25 10:05] LABS: Influenza A Ag Negative; Influenza B Ag Negative
[2024-12-25 10:11] LABS: Troponin I 0.114 ng/mL (0.0-0.045)
[2024-12-25 10:17] LABS: D-Dimer < 250 ng/mL (<600)
[2024-12-25 10:40] LABS: Beta Hydroxybutyrate 0.1 mmol/L (<0.6)
[2024-12-25 10:44] LABS: Collection Type, Urine Clean Catch
[2024-12-25 11:02] LABS: Bacteria,Urine Rare; Bilirubin,Urine Negative (Negative); Blood,Urine Negative (Negative); Color,Urine Lt-Yellow (Lt Yel-Yel); Glucose, Urine Negative (Negative); Hyaline Casts,Urine < 1 /hpf (0-1); Ketones,Urine Negative (Negative); Leukocyte Esterase,Urine Positive (Negative); Nitrite,Urine Positive (Negative); PH,Urine 7.0 (5.0-7.0); Protein,Urine Negative (Neg - Trace); RBC,Urine 2 /hpf (0-3); Specific Gravity,Urine 1.013 (1.001-1.035); Squamous Epithelial Cell,Urine 2 /hpf (0-5); Urobilinogen,Urine Negative mg/dL (0.0-1.0); WBC,Urine 41 /hpf (0-5)
[2024-12-25 11:10] LABS: Culture Indicated,Urine Yes
[2024-12-25 11:11] LABS: Clarity,Urine Hazy (Clear/Hazy)
[2024-12-25] MEDS: cefTRIAXone/D5w 1gm IV premix 1 GM/50 ML BAG IV (11:28)
--- NOTE | 2024-12-25 11:31 | ECHO_ITS ---
Patient Info Name: Alexandria Wen Age: 74 years : 1950 Gender: Female Ht: 175 cm Wt: 107 kg BSA: 2.32 m2 BP: 141 / 86 mmHg HR: 82 bpm Heart Rhythm: Sinus Rhythm Exam Date: 12/25/2024 12:07 PM Admit Date: 12/25/2024 Site: [facility] Patient Status: I Technical Quality: Poor Exam Type: CA echo doppler complete Reason for Poor Study: body habitus Elevator Constructor Supervisor: Sarah Mullins Ordering Physician: Mona Chase Study Info Indications NSETMI - Primary Location: [facility] Left Ventricular Outflow Tract Name Value Normal LVOT 2D LVOT Diameter 2.3 cm LVOT Doppler LVOT Peak Velocity 133 cm/s LVOT Mean Gradient 3 mmHg LVOT VTI 31 cm LVOT VTI/AV VTI Ratio 1.0 LVOT Stroke Volume 130 ml Pulmonic Valve Name Value Normal PV Doppler PV Peak Velocity 113 cm/s Mitral Valve Name Value Normal MV Doppler MV Decel Rich 366 cm/s2 MV PHT 59 ms MV Area (PHT) 3.7 cm2 4.0-5.0 MV Diastolic Function MV E Peak Velocity 75 cm/s MV A Peak Velocity 126 cm/s MV E/A 0.6 MV Annular TDI MV Septal e' Velocity 6.2 cm/s MV E/e' (Septal) 12.0 MV Lateral e' Velocity 6.4 cm/s MV E/e' (Lateral) 11.6 MV e' Average 6.31 cm/s MV E/e' (Average) 11.8 Tricuspid Valve Name Value Normal Estimated PAP/RSVP RA Pressure 3 mmHg <=5 Aorta Name Value Normal Ascending Aorta Ao Root Diameter (2D) 3.5 cm Ao Root Diam Index (2D) 1.5 cm/m2 Aortic Valve Name Value Normal AV Doppler AV Peak Velocity 139 cm/s AV Mean Gradient 4 mmHg AV VTI 30 cm AV Area (Cont Eq VTI) 4.3 cm2 >=3.0 AV Area (Cont Eq Rickey) 4.0 cm2 AV DI (Rickey) 0.96 AV Regurgitation 2D LVOT Area 4.2 cm2 Ventricles Name Value Normal LV Dimensions 2D/MM IVS Diastolic Thickness (2D) 0.9 cm 0.6-0.9 LVID Diastole (2D) 4.2 cm 3.8-5.2 LVIW Diastolic Thickness (2D) 0.8 cm 0.6-0.9 LVID Systole (2D) 2.7 cm 2.2-3.5 LVOT Diameter 2.3 cm LV Mass (2D Cubed) 109.83 g 67.00-162.00 LV Mass Index (2D Cubed) 47 g/m2 43-95 Relative Wall Thickness (2D) 0.38 <=0.42 IVS/LVIW Diastolic Thickness (2D) 1.13 0.00-1.50 LV Fractional Shortening/Ejection Fraction 2D/MM LV Fractional Shortening (2D) 36 % 27-45 LV EF (2D Teichholz) 66 % LV Diastolic Volume (4C MOD) 71 ml LV EF (4C MOD) 68 % LV Diastolic Volume (2C MOD) 65 ml LV EF (2C MOD) 55 % LV Diastolic Volume (BP MOD) 69 ml 46-106 LV Diastolic Volume Index (BP MOD) 30 ml/m2 29-61 LV Systolic Volume (BP MOD) 27 ml 14-42 LV Systolic Volume Index (BP MOD) 12 ml/m2 8-24 LV EF (BP MOD) 61 % 54-74 LV Diastolic Length (4C) 7.1 cm LV Systolic Length (4C) 6.1 cm LV Stroke Volume (4C MOD) 49 ml Atria Name Value Normal LA Dimensions LA Volume (4C A-L) 29 ml Left Ventricle Left ventricular chamber dimension is normal. Left ventricular systolic function is normal with visually estimated ejection fraction of 60-65%. There is normal geometry noted in the left ventricle. Left ventricular segmental wall motion is normal. The left ventricular diastolic function is grade I diastolic dysfunction. Right Ventricle Right ventricular chamber dimension is mildly enlarged. Right ventricular systolic function is normal. Left Atrium Left atrial chamber dimension is normal. Right Atrium Right atrial chamber dimension is normal. Aortic Valve There is mild aortic valve sclerosis. There is no aortic valve stenosis with a peak velocity of 139 cm/s, mean gradient of 4 mmHg, and aortic valve area of 4.3 cm2. There is no aortic valve regurgitation. Pulmonic Valve The pulmonic valve is normal. There is no pulmonic valve stenosis. There is no pulmonic regurgitation. Mitral Valve The mitral valve has a calcified annulus. There is no mitral valve stenosis. There is trace mitral valve regurgitation. Tricuspid Valve The tricuspid valve leaflets are normal. There is no tricuspid valve stenosis. There is trace tricuspid valve regurgitation. Unable to estimate pulmonary artery systolic pressure due to inadequate tricuspid regurgitant envelope. Pericardium/Pleural The pericardium appears normal. There is no pericardial effusion. No pleural effusion visualized. Inferior Vena Cava Normal inferior vena cava with >50% collapse upon inspiration consistent with normal right atrial pressure, 3 mmHg. Aorta The aortic measurements are indexed to age and body surface area. Summary 1. Left ventricle size is normal and systolic function is normal. Visually estimated ejection fraction is 60-65%. The diastolic function is grade I diastolic dysfunction. 2. Right ventricle size is mildly enlarged and systolic function is normal. 3. There is mild aortic valve sclerosis with no stenosis. 4. There is trace regurgitation. 5. Normal IVC with estimated RA pressure 3 mmHg. Report Signatures Finalized by Klaudia Zaragoza on 12/30/2024 01:56 PM
[2024-12-25 12:03] LABS: Sed Rate (ESR) 22 mm/hr (0-30)
[2024-12-25] MEDS: Heparin/D5w 25K 250 ML Ivpb 25,000 UNIT/250 ML BAG 12.791 UNIT IV (12:09)
[2024-12-25] MEDS: METOPROLOL TARTRATE 25 MG TABLET PO ×2 (12:10→21:21)
[2024-12-25 12:18] LABS: Reflex Lactate? Y
--- NOTE | 2024-12-25 13:18 | ESHP_ITS ---
Documentation for date of: 12/25/24 [facility] History of Present Illness History of present illness: History of Present Illness: Alexandria Bush is 74y/o female with PMH of ischemic stroke in 2007 on warfarin, Neurofibromatosis type 1, Atrial Septal Defect, CKD stage 3a, Parathyroid surgery 2.5yrs ago, HTN, hypothyroid, presented to the ED due to episode of dizziness. 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 No other symptoms were noted. During the time of examination, the patient was asymptomatic. She repoted that this episode has not occurred previously since her ischemic stroke in 2007. Patient noted that she does not want any invasive procedures done like cardiac cath if at all possible. No new neruological deficits noted. Patient was admitted for NSTEMI. ED course: Vitals: BP:136/85, NC:80. RR:18, Temp:98F, 96% o2sat on room air. Labs: Hemoglobin 10.6 glucose 128, eGFR 43, lactic acid 3.4 corrected calcium 8.1, troponin 0.114, BNP 60, CRP 1.3 UA: Hazy light to yellow urine, urine nitrate positive, urine WBC 41, urine bacteria rare CXR (12/25/2024): No active disease Head CT (12/25/2024): Negative for acute hemorrhage, mass effect or midline shift In ED, patient was given Xanax 0.25 mg p.o. x 1, aspirin 324 mg p.o. x 1, aspirin 81 mg p.o. daily, atorvastatin 80 mg p.o. at bedtime, heparin drip, metoprolol 25 mg p.o. twice daily, Zofran 4 mg IV x 1, ceftriaxone 1 g IV x 1, IV bolus NS 1 L x 1. Medical history: As stated above Surgical history: Parathyroid surgery, Left knee meniscectomy, Bilateral SLAP shoulder repair, Bladder repair surgery. Allergies: Ibuprofen, Aspirin, Toradol causing abdominal discomfort Medications: Pending official med rec Family history: Noncontributory Social history: Denies smoking cigarettes, drinking alcohol or using other illicit drugs Review of Systems Review of Systems Narrative Review of Systems: All 12 systems assessed and the patient denies unless otherwise stated in HPI Exam Vital Signs Temp Pulse Resp BP Pulse Ox O2 Del Method 98.0 F 74 16 141/86 H 97 Room Air 12/25/24 10:24 12/25/24 13:15 12/25/24 13:15 12/25/24 12:10 12/25/24 10:24 12/25/24 10:24 Narrative Exam General: No acute distress, well nourished, AAO x3 Eye: PERRL, EOMI, normal conjunctiva, no scleral icterus HENT: Normocephalic, atraumatic, hearing intact to conversation at normal volume, moist oral mucosa Neck: Supple, non-tender, no JVD, no lymphadenopathy Lungs: Non-labored respirations, symmetric chest rise, Clear to auscultate bilaterally, No wheezing, rhonchi, crackles Heart: Peripheral pulses intact bilaterally, Regular Rate and Rhythm. Abdomen: Soft, non-tender, non-distended, no palpable masses Musculoskeletal: Normal range of motion and strength, No cyanosis or edema, No visible joint swelling Skin: Skin is warm, dry, no rashes or lesions. Psychiatric: Cooperative, appropriate mood and affect, Awake and alert, not agitated Neuro: Cranial nerves II-XII grossly intact. Strength 5/5 throughout. Sensations intact to light touch. Results: Labs 12/26/24 06:00 12/26/24 06:00 Labs: Short CBC 12/25/24 Range/Units 09:13 WBC 8.6 (3.6-11.0) Thou/mm3 Hgb 10.6 L (12.0-16.0) g/dL Hct 34.7 L (36.0-46.0) % Plt Count 343 (140-440) Thou/mm3 BMP 12/25/24 09:13 Sodium 142 Potassium 4.0 Chloride 103 Carbon Dioxide 26.3 BUN 21 Creatinine 1.3 Glucose 128 H Calcium 8.1 L Cardiac Enzymes 12/25/24 Range/Units 09:13 Troponin I 0.114 H* (0.0-0.045) ng/mL Liver Function 12/25/24 Range/Units 09:13 Total Bilirubin 0.3 (0.3-1.2) mg/dL Direct Bilirubin < 0.1 (0.0-0.3) mg/dL AST 24 (0-34) U/L ALT 12 (10-49) U/L Alkaline Phosphatase 107 (46-116) U/L Albumin 4.2 (3.4-4.8) gm/dL Urine 12/25/24 Range/Units 10:38 Urine Color Lt-Yellow (Lt Yel-Yel) Urine Clarity Hazy (Clear/Hazy) Urine pH 7.0 (5.0-7.0) Ur Specific [place] 1.013 (1.001-1.035) Urine Protein Negative (Neg - Trace) Urine Glucose (UA) Negative (Negative) Quality Measures Quality Measures none Advance care planning discussed with:: patient Medications Home Medications and Allergies Home Medications ?Medication ?Instructions ?Recorded ?Confirmed ?Type DIAZIDE/ HCTZ 1 tab PO DAILY ##0 08/24/12 12/25/24 History FUROSET 1 tab PO Q6-8 HRS ##0 12/26/24 History alprazolam 0.25 mg tablet 0.25 mg PO HS ##0 08/24/12 1 History benazepril 40 mg tablet (Lotensin) 40 mg PO BID ##0 12/25/24 History cyclobenzaprine 10 mg tablet 10 mg PO [id number] ##0 07/2912/25/24 History (Flexeril) levothyroxine 75 mcg tablet 75 mcg PO DAily ##0 12/25/24 History (Levoxyl) potassium chloride 20 mEq 20 meq PO BID ##0 08/24/12 1 History tablet,extended release(part/cryst) warfarin 10 mg tablet (Coumadin) 10 mg PO DAILY ##0 12/25/24 History amlodipine 10 mg tablet (Norvasc) 10 mg PO QDAY #0 tab s 09/10/13 12/25/24 History warfarin 5 mg tablet (Coumadin) See Rx Instructions .R oute .COMPLEX 06/02/17 12/25/24 History calcitriol 0.25 mcg capsule 0.25 mcg PO EVERYOTHERDAY 12/25/24 12/26/24 History Allergies Allergy/AdvReac Type Severity Reaction Status Date / Time aspirin Allergy Severe GI UPSET Verified 07/04/22 09:41 codeine Allergy Severe GI UPSET Verified 07/04/22 09:41 meperidine Allergy Severe GI UPSET Verified 07/04/22 09:41 morphine Allergy Severe INSANE Verified 07/04/22 09:41 NSAIDS (Non-Steroidal Allergy Severe GI UPSET Verified 07/04/22 09:41 Anti-Inflamma prednisone Allergy Severe Gastrointestinal Verified 07/04/22 09:41 Upset Visit Medications Acetaminophen (Acetaminophen 325 Mg Tablet) 650 mg PO Q6H PRN PRN Reason: Fever >101.5 Stop: 01/24/25 11:59 Aspirin (Aspirin Ec 81 Mg Tabec) 81 mg PO QDAY [facility] Stop: 01/25/25 08:59 Atorvastatin Calcium (Atorvastatin Calcium 20 Mg Tablet) 80 mg PO HS [facility] Stop: 01/24/25 20:59 Heparin Sodium/Dextrose (Heparin In D5w Ivpb) 25,000 unit in 250 mls @ 12.791 mls/hr IV .[id number] [facility]; Protocol Stop: 01/08/25 11:29 Last Admin: 12/25/24 12:09 Dose: 12 units/kg/hr, 12.791 mls/hr Ceftriaxone Sodium/Dextrose (Rocephin/D5w 1gm Iv Premix) 1 gm in 50 mls @ 100 mls/hr IV QDAY [facility] Stop: 01/02/25 08:59 Metoprolol Tartrate (Metoprolol Tartrate 25 Mg Tablet) 25 mg PO BID [facility] Stop: 01/24/25 11:44 Last Admin: 12/25/24 12:10 Dose: 25 mg Ondansetron HCl (Ondansetron Inj 2 Mg/Ml Inj 2 Ml) 4 mg IVP Q6H PRN; Protocol PRN Reason: NAUSEA OR VOMITING Stop: 01/24/25 11:59 Pantoprazole Sodium (Pantoprazole 40 Mg Tablet) 40 mg PO QDAY [facility] Stop: 01/25/25 08:59 Discontinued Medications Alprazolam (Alprazolam 0.25 Mg Tablet) 0.25 mg PO X1 ONE Stop: 12/25/24 08:43 Last Admin: 12/25/24 09:40 Dose: 0.25 mg Aspirin (Aspirin 81 Mg Chew) 324 mg PO X1 ONE Stop: 12/25/24 11:09 Last Admin: 12/25/24 11:22 Dose: Not Given Sodium Chloride (Ns) 1,000 mls @ 999 mls/hr IV .Q1H1M ONE Stop: 12/25/24 09:42 Last Infusion: 12/25/24 10:41 Dose: Infused Ceftriaxone Sodium/Dextrose (Rocephin/D5w 1gm Iv Premix) 1 gm in 50 mls @ 100 mls/hr IV X1 ONE Stop: 12/25/24 11:45 Last Infusion: 12/25/24 12:02 Dose: Infused Ondansetron HCl (Ondansetron Inj 2 Mg/Ml Inj 2 Ml) 4 mg IVP X1 ONE; Protocol Stop: 12/25/24 08:43 Last Admin: 12/25/24 09:43 Dose: Not Given Assessment & Plan Plan Alexandria Bush is 74y/o female with PMH of ischemic stroke in 2007 on warfarin, Neurofibromatosis type 1, Atrial Septal Defect, CKD stage 3a, Parathyroid surgery 2.5yrs ago, HTN, hypothyroid, presented to the ED 0n 12/25/2024, due to episode of dizziness. Patient was admitted for NSTEMI. #NSTEMI type 1 vs type 2 #Episodes of dizziness #Hx of ischemic stroke in 2007 -Patient has been chronically using warfarin since ischemic stroke in 2007. -Likely type 2, given borderline troponin level, negative BNP, EKG showing no significant ST level changes -EKG: No significant ST level changes. -CXR (12/25/2024): No active disease -Head CT (12/25/2024): Negative for acute hemorrhage, mass effect or midline shift -Troponin: 0.114 -> 0.117 ->0.108 Plan: -On ACS protocol: Heparin drip, Atorvastatin 80 mg po hs, Aspirin 81mg po qd, Metoprolol 25 mg po bid -Continue to trend troponin -ECHO pending -Currently holding Warfarin -If troponin increases, patient will need to do cardio angiogram on monday. If not, will be discharged tomorrow and follow up outpatient. -Consulted Cardiology, Dr. Zaragoza, appreciate recommendations. #UTI -UA showed Hazy light to yellow urine, urine nitrate positive, urine WBC 41, urine bacteria rare -On IV ceftriazone 1g qd -Urine Cx and Blood Cx pending #CKD stage 3a -On admission BUN: 21, Cr:1.3, eGFR:43. (baseline ~55) -Will continue to monitor #HTN -Metoprolol 25mg po bid #History of Neurofibromatosis type 1 -f/u outpatient #History of Atrial Septal defect -f/u outpatient Disposition: Med surg Diet: Cardiac diet, NPO midnight GI prophylaxis: Protonix 40mg po qd DVT prophylaxis: Heparin Code: DNR Assessment and plan discussed with my attending physician Dr. Tomlinson and Dr. Chase (PGY-3) Dr. Hebert (PGY-1) - Internal medicine resident Attending Provider Attestation/Addendum I have examined the patient, reviewed labs and imaging findings, discussed the case with the resident(s), and reviewed entered orders. I agree with the plan of care as outlined in this note, with these additional summaries/recommendations: After examination of the patient and review of the clinical data, I feel that this patient needs admission to the hospital for further treatment and evaluation. Patient is a 74-year-old female with a medical history of CVA in 2007 on warfarin chronically secondary to aspirin allergy, NF 1, ASD, CKD, mixed connective tissue disorder, parathyroidectomy, primary hypertension, and hypothyroidism presents to [facility] emergency department on 12/25/2024 with chief complaint of dizziness, shortness of breath, and palpitations. Patient seen at bedside. She denies having chest pain. Patient endorses shortness of breath and palpitations. Troponin elevated. Patient diagnosed with NSTEMI type I versus type II. Nonspecific ST changes on EKG. Consult cardiology, recommendations appreciated. Hold home warfarin for now. Start heparin gtt., atorvastatin, aspirin 81 mg p.o. daily, and continue metoprolol. Echocardiogram ordered. Will follow-up with cardiology if cardiac catheterization is required although patient adamantly refuses cardiac catheterization given her history of mixed connective tissue disease. Urinalysis suggestive of urinary tract infection and start IV Rocephin. Patient's underlying CKD appears stable. Continue metoprolol for primary hypertension. Patient updated on the plan and in agreement. All labs and imaging reviewed with patient. Please see residents note for additional details and management. Dr. Bushra MD
[2024-12-25 13:28] LABS: Troponin I 0.117 ng/mL (0.0-0.045)
[2024-12-25 13:32] LABS: Lactic Acid, 3 HR 1.1 mMol/L (0.4-2.0)
[2024-12-25 14:22] LABS: Lactate (Lactic Acid) 0.9 mMol/L (0.4-2.0)
[2024-12-25 17:47] LABS: Lactate (Lactic Acid) 1.2 mMol/L (0.4-2.0)
--- NOTE | 2024-12-25 18:15 | PC.NURSE ---
per dr marina cardiac diet now npo after midnight
[2024-12-25 18:32] LABS: Troponin I 0.108 ng/mL (0.0-0.045)
--- NOTE | 2024-12-25 18:53 | PD.IMCONS ---
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 [employer] no chest pain /sob/ diaphoresis EKG PVC noted , no acute ST T wave changes troponin .117, .108 minimal pt denies prior history of CAD informs me she had cardiac w/u 2 yrs ago in [place] prior to her surgery and was told negative cc:: cc: Yuri Tomlinson MD Meds Home Medications and Allergies Home Medications ?Medication ?Instructions ?Recorded ?Confirmed ?Type DIAZIDE/ HCTZ 1 tab PO DAILY ##0 08/24/12 06/02/17 History FUROSET 1 tab PO Q6-8 HRS ##0 08/24/12 06/02/17 History alprazolam 0.25 mg tablet 0.25 mg PO HS ##0 08/24/12 06/02/17 History benazepril 40 mg tablet (Lotensin) 40 mg PO BID ##0 08/24/12 06/02/17 History cyclobenzaprine 10 mg tablet 10 mg PO [id number] ##0 08/24/12 06/02/17 History (Flexeril) levothyroxine 75 mcg tablet 75 mcg PO DAily ##0 08/24/12 06/02/17 History (Levoxyl) potassium chloride 20 mEq 20 meq PO BID ##0 08/24/12 06/02/17 History tablet,extended release(part/cryst) warfarin 10 mg tablet (Coumadin) 10 mg PO DAILY ##0 08/24/12 06/02/17 History amlodipine 10 mg tablet (Norvasc) 10 mg PO QDAY #0 tabs 09/10/13 06/02/17 History warfarin 5 mg tablet (Coumadin) See Rx Instructions .Route .COMPLEX 06/02/17 06/02/17 History Allergies Allergy/AdvReac Type Severity Reaction Status Date / Time aspirin Allergy Severe GI UPSET Verified 07/04/22 09:41 codeine Allergy Severe GI UPSET Verified 05/08/23 09:41 meperidine Allergy Severe GI UPSET Verified 07/04/22 09:41 morphine Allergy Severe INSANE Verified 07/04/22 09:41 NSAIDS (Non-Steroidal Allergy Severe GI UPSET Verified 07/04/22 09:41 Anti-Inflamma prednisone Allergy Severe Gastrointestinal Verified 07/04/22 09:41 Upset Exam Vital Signs Temp Pulse Resp BP Pulse Ox O2 Del Method 98.0 F 71 18 124/72 97 Room Air 12/25/24 10:24 12/25/24 14:59 12/25/24 14:59 12/25/24 14:59 12/25/24 14:59 12/25/24 14:59 Routine HEENT Exam Head: Present normocephalic and atraumatic Eye: Present EOMI and PERRL ENT: Present mucous membranes moist Routine Neck Exam Neck: Present supple and trachea midline Routine Respiratory Exam Respiratory: Present chest non-tender, lungs clear, normal breath sounds and no resp distress Routine Cardiovascular Exam Cardiovascular: Present RRR Routine Abdominal Exam Abdominal: Present soft and normoactive bowel sounds Routine Extremities Exam Extremities: Present full ROM Routine Skin Exam Skin: Present intact, dry and warm Routine Neurological Exam Neurological: Present alert, oriented X3 and CN II-XII intact Routine Psychiatric Exam Psychiatric: Present normal affect and normal thought process Results Labs 12/25/24 09:13 12/25/24 09:13 Labs: Short CBC 12/25/24 Range/Units 09:13 WBC 8.6 (3.6-11.0) Thou/mm3 Hgb 10.6 L (12.0-16.0) g/dL Hct 34.7 L (36.0-46.0) % Plt Count 343 (140-440) Thou/mm3 BMP 12/25/24 09:13 Sodium 142 Potassium 4.0 Chloride 103 Carbon Dioxide 26.3 BUN 21 Creatinine 1.3 Glucose 128 H Calcium 8.1 L Cardiac Enzymes 12/25/24 12/25/24 12/25/24 Range/Units 09:13 12:30 17:39 Troponin I 0.114 H* 0.117 H* 0.108 H* (0.0-0.045) ng/mL Liver Function 12/25/24 Range/Units 09:13 Total Bilirubin 0.3 (0.3-1.2) mg/dL Direct Bilirubin < 0.1 (0.0-0.3) mg/dL AST 24 (0-34) U/L ALT 12 (10-49) U/L Alkaline Phosphatase 107 (46-116) U/L Albumin 4.2 (3.4-4.8) gm/dL Urine 12/25/24 Range/Units 10:38 Urine Color Lt-Yellow (Lt Yel-Yel) Urine Clarity Hazy (Clear/Hazy) Urine pH 7.0 (5.0-7.0) Ur Specific [place] 1.013 (1.001-1.035) Urine Protein Negative (Neg - Trace) Urine Glucose (UA) Negative (Negative) Assessment and Plan Assessment and plan (1) Pre-syncope: Status: Acute (2) Elevated troponin: Status: Acute (3) HTN (hypertension): Status: Acute (4) ASD (atrial septal defect): Status: Acute (5) CVA (cerebral vascular accident): Status: Acute Additional Assessment & Plan Additional Plan: pt denies chest pain troponin minimal no EKG changes for ischemia PVC noted will r/o TX Echo to be obtained pt on chronic anticoagulation
--- NOTE | 2024-12-25 19:17 | PC.NURSE ---
PATIENT IS REQUESTING TO SIGN OUT AMA. CALLED DR. NGUYỄN TO NOTIFY HER OF PATIENTS REQUEST. ASKED DR. NGUYỄN TO COME TALK TO PATIENT AND EXPLAIN THE RISK OF LEAVING AMA. PER DR. NGUYỄN SHE WILL COME TALK TO PATIENT.
[2024-12-25 19:34] LABS: Partial Thromboplastin Time 108.2 Seconds (22.0-36.0)
[2024-12-26] VITALS (7 sets, daily range): BP systolic 110–129; BP diastolic 60–77; PULSE 57–89; RESP 18–20; TEMP 36.4–36.6; O2SAT 97–98; BMI 35.6
[2024-12-26 00:34] LABS: Troponin I 0.107 ng/mL (0.0-0.045)
[2024-12-26 01:04] LABS: Partial Thromboplastin Time 75.1 Seconds (22.0-36.0)
[2024-12-26 06:31] LABS: Basophils # (Auto) 0.1 Thou/mm3 (0.0-0.2); Basophils % (Auto) 1 % (0-2.5); Eosinophils # (Auto) 0.1 Thou/mm3 (0.0-0.5); Eosinophils % (Auto) 2 % (0-10); Hematocrit 32.8 % (36.0-46.0); Hemoglobin 10.3 g/dL (12.0-16.0); Immature Granulocytes Auto 0.03 Thou/mm3 (0.00-0.00); Lymphocytes # (Auto) 3.2 Thou/mm3 (1.0-4.8); Lymphocytes % (Auto) 36 % (10-50); Mean Corpuscular HGB Conc 31.4 g/dl (31.0-37.0); Mean Corpuscular Hemoglobin 24.2 pg (25.0-35.0); Mean Corpuscular Volume 77 fL (80-100); Monocytes # (Auto) 0.8 Thou/mm3 (0.0-0.8); Monocytes % (Auto) 9 % (0-12); Neutrophils # (Auto) 4.7 Thou/mm3 (1.8-7.7); Neutrophils % (Auto) 52 % (37-80); Nucleated Red Blood Cell # 0.00 Thou/mm3 (0.00-0.00); Nucleated Red Blood Cell % 0 /100 WBC (0); Platelet Count 350 Thou/mm3 (140-440); RDW Standard Deviation 47.5 fL (36.4-46.3); Red Blood Count 4.26 Miln/mm3 (4.00-5.20); White Blood Count 8.9 Thou/mm3 (3.6-11.0)
[2024-12-26 06:50] LABS: Alanine Aminotransferase 12 U/L (10-49); Albumin, Serum 4.0 gm/dL (3.4-4.8); Albumin/Globulin Ratio 2.0 (1.2-2.2); Alkaline Phosphatase 107 U/L (46-116); Anion Gap 10 (7-16); Aspartate Amino Transferase 22 U/L (0-34); BUN/Creatinine Ratio 20 Ratio (12-20); Bilirubin,Total 0.3 mg/dL (0.3-1.2); Blood Urea Nitrogen 20 mg/dL (9-23); Calcium 8.0 mg/dL (8.3-10.6); Calcium (Corrected) 8.0 mg/dL (8.5-10.1); Carbon Dioxide 30.2 mMol/L (20.0-31.0); Cardiac Risk Estimate 2.4 RATIO (3.7-5.6); Chloride 101 mMol/L (98-107); Cholesterol 186 mg/dL (132-200); Creatinine (Component) 1.0 mg/dL (0.6-1.3); Estimated Creatinine Clearance 65.1 mL/min (>60); Globulin 2.0 gm/dL (2.3-3.5); Glucose 90 mg/dL (74-106); HDL Cholesterol 78 mg/dL (40-60); LDL Cholesterol,Calculated 92 mg/dL (0-130); Magnesium 1.8 mg/dL (1.6-2.6); Osmolality,Calculated 283 (275-295); Phosphorous 4.8 mg/dL (2.4-5.1); Potassium 3.5 mMol/L (3.4-5.1); Sodium 141 mMol/L (136-145); Thyroid Stimulating Hormone 1.33 uIU/mL (0.55-4.78); Total Protein 6.0 gm/dL (5.7-8.2); Triglycerides 81 mg/dL (30-150); eGFR 59 See Note
[2024-12-26 06:53] LABS: Partial Thromboplastin Time 67.0 Seconds (22.0-36.0)
[2024-12-26] MEDS: MAGNESIUM OXIDE 400 MG TABLET PO (09:06)
[2024-12-26] MEDS: cefTRIAXone/D5w 1gm IV premix 1 GM/50 ML BAG IV (09:17)
[2024-12-26 11:17] LABS: INR 2.6 (0.9-1.3); Prothrombin Time 25.3 Seconds (9.0-12.2)
--- NOTE | 2024-12-26 14:35 | ESDS_ITS ---
<Statement entered by Sathish Yanes MD - 12/26/24 18:03> I have personally seen and examined the patient. I agree with the resident's discharge summary as documented below. Sathish Yanes DO PGY-2 Internal Medicine - GME Planned Discharge Date 12/26/24 DS: Providers Provider Date of admission: 12/25/24 12:00 Primary care physician: Elvin Plilai MD Admitting Provider: Yuri Tomlinson MD Attending Provider on Admission: Yuri Tomlinson MD Consults: 12/25/24 11:10 Consult to Cardiology Stat Comment: Consulting Provider: Klaudia Zaragoza Instructions: NSTEMI Attending Provider on DC: Anirudh Hebert DO Discharging Provider: Anirudh Hebert DO DS: Diagnosis Problem List Completed Was Problem List Reviewed/Reconciled?: Yes Hospital Course Hospital Course Hospital course: Summary: Alexandria Bush is 74y/o female with PMH of ischemic stroke in 2007 on warfarin, Neurofibromatosis type 1, Atrial Septal Defect, CKD stage 3a, Parathyroid surgery 2.5yrs ago, HTN, hypothyroidism, presented to the ED due to episode of dizziness. Patient was admitted for NSTEMI. Patient's troponin was downtrending, CXR and Head CT was negative. Patient was discharged with her home medication warfarin and instructed to follow up with celery wrapper within 1 week. ED course: Vitals: BP:136/85, WI:80. RR:18, Temp:98F, 96% o2sat on room air. Labs: Hemoglobin 10.6 glucose 128, eGFR 43, lactic acid 3.4 corrected calcium 8.1, troponin 0.114, BNP 60, CRP 1.3 UA: Hazy light to yellow urine, urine nitrate positive, urine WBC 41, urine bacteria rare CXR (12/25/2024): No active disease Head CT (12/25/2024): Negative for acute hemorrhage, mass effect or midline shift In ED, patient was given Xanax 0.25 mg p.o. x 1, aspirin 324 mg p.o. x 1, aspirin 81 mg p.o. daily, atorvastatin 80 mg p.o. at bedtime, heparin drip, metoprolol 25 mg p.o. twice daily, Zofran 4 mg IV x 1, ceftriaxone 1 g IV x 1, IV bolus NS 1 L x 1. Hospital Course: Upon admission to the hospital, patient was given heparin drip, atorvastatin 80 mg p.o. at bedtime, aspirin 81 mg p.o. daily, metoprolol 25 mg p.o. twice daily. Patient's home medication Warfarin was on hold. Troponin trend as follows 0.114 -> 0.117 -> 0.108 -> 0.107. The next day, patient was asymptomatic. Per cardiology recommendations, patient was discharged with her home medication, along with warfarin. Plavix was not indicate at the time, per Cardiology. Patient was given IV ceftriaxone 1g qd for her UTI during hospital stay. Urine Culture showed GNR. Instructed to follow up outpatient with Cardiology within 1 week of discharge Instructions: Please take Lipitor 40 mg by mouth nightly once a day for NSTEMI Please take Metoprolol tartrate 25 mg tablet twice a day for NSTEMI Follow-up with Dr. Zaragoza, Cardiology, for outpatient workup for NSTEMI including a stress test - ask Dr. Zaragoza if you should be on antiplatelet medications, Plavix Follow-up with your PCP within 1 week of discharge - continue outpatient Bactrim as prescribed every 3 months by your PCP (stated) Continue checking INR levels weekly and adjust warfarin dosage as necessary If your symptoms worsen or if you develop new chest pain, shortness of breath, dizziness or bleeding - please come back to the ED immediately. #NSTEMI type 1 vs type 2 #Episodes of dizziness #Hx of ischemic stroke in 2007 #UTI #CKD stage 3a #HTN #History of Neurofibromatosis type 1 #History of Atrial Septal defect Assessment and plan discussed with my attending physician Dr. Tomlinson and Dr. Yanes (PGY-2) Dr. Hebert (PGY-1) - Internal medicine resident Status at Discharge Overall status at discharge: patient is progressing back to baseline Time Spent with Patient Time attestation: Total time spent providing and/or coordinating discharge services: Time spent: Greater than 30 minutes Exam Vital Signs Temp Pulse Resp BP Pulse Ox O2 Del Method 97.8 F 71 20 127/76 97 Room Air 12/26/24 11:24 12/26/24 11:24 12/26/24 11:24 12/26/24 11:24 12/26/24 11:24 12/26/24 11:24 Narrative Exam General: No acute distress, well nourished, AAO x3 Eye: PERRL, EOMI, normal conjunctiva, no scleral icterus HENT: Normocephalic, atraumatic, hearing intact to conversation at normal volume, moist oral mucosa Neck: Supple, non-tender, no JVD, no lymphadenopathy Lungs: Non-labored respirations, symmetric chest rise, Clear to auscultate bilaterally, No wheezing, rhonchi, crackles Heart: Peripheral pulses intact bilaterally, Regular Rate and Rhythm. Abdomen: Soft, non-tender, non-distended, no palpable masses Musculoskeletal: Normal range of motion and strength, No cyanosis or edema, No visible joint swelling Skin: Skin is warm, dry, no rashes or lesions. Psychiatric: Cooperative, appropriate mood and affect, Awake and alert, not agitated Neuro: Cranial nerves II-XII grossly intact. Strength 5/5 throughout. Sensations intact to light touch. Discharge Plan Plan Patient Disposition: HOME (Self Care) Patient condition on transfer: Stable Care Plan Goals: Please take Lipitor 40 mg by mouth nightly once a day for NSTEMI Please take Metoprolol tartrate 25 mg tablet twice a day for NSTEMI Follow-up with Dr. Zaragoza, Cardiology, for outpatient workup for NSTEMI including a stress test - ask Dr. Zaragoza if you should be on antiplatelet medications, Plavix Follow-up with your PCP within 1 week of discharge - continue outpatient Bactrim as prescribed every 3 months by your PCP (stated) Continue checking INR levels weekly and adjust warfarin dosage as necessary If your symptoms worsen or if you develop new chest pain, shortness of breath, dizziness or bleeding - please come back to the ED immediately. Prescriptions/Referrals Prescriptions/Med Rec: New metoprolol tartrate 25 mg Tablet 25 mg PO BID 30 Days Qty: 60 0RF atorvastatin [Lipitor] 40 mg tablet 40 mg PO QPM 30 Days Qty: 30 0RF Continued cyclobenzaprine [Flexeril] 10 MG tablet 10 mg PO [id number] Qty: 0 warfarin [Coumadin] 10 MG tablet 10 mg PO DAILY Qty: 0 levothyroxine [Levoxyl] 75 MCG tablet 75 mcg PO DAily Qty: 0 alprazolam 0.25 MG tablet 0.25 mg PO HS Qty: 0 potassium chloride 20 MEQ tablet,ER particles/crystals 20 meq PO BID Qty: 0 benazepril [Lotensin] 40 MG tablet 40 mg PO BID Qty: 0 FUROSET 1 tab PO Q6-8 HRS Qty: 0 amlodipine [Norvasc] 10 MG tablet 10 mg PO QDAY Qty: 0 warfarin [Coumadin] 5 mg Tablet See Rx Instructions .ROUTE .COMPLEX Rx Instructions: 5 mg orally [id number] [Fioricet] 50-300-40 mg capsule 1 cap PO Q4H PRN (Reason: pain) Qty: 4 0RF albuterol sulfate 2.5 mg /3 mL (0.083 %) solution for nebulization 2.5 mg inhalation Q4H PRN (Reason: shortness of breath or wheezing) Qty: 90 0RF calcitriol 0.25 mcg capsule 0.25 mcg PO EVERYOTHERDAY triamterene-hydrochlorothiazid 75-50 mg tablet 1 tab PO QDAY Discontinued DIAZIDE/ HCTZ 1 tab PO DAILY Qty: 0 albuterol sulfate 2.5 mg /3 mL (0.083 %) solution for nebulization 2.5 mg inhalation QID PRN (Reason: shortness of breath or wheezing) Qty: 90 0RF Referrals: Klaudia Zaragoza MD [Physician, Cardiology] Elvin Pillai MD [Primary Care Provider, Family Practice] Patient/Caregiver Discharge Instructions Education Materials: Know the Medicines You're Taking, Warning Signs of a Heart Attack Print Language: Tanzanian Stand Alone Forms: Nadia Award Info., Patient Portal Info Letter Discharge Order Discharge Orders: Discharge (Routine); Ordered 12/26/24 Ordered By: Sathish Yanes Quality Discharge Quality Measures VTE prophylaxis Attestestation MD Attestation I have examined the patient, reviewed labs and imaging findings, discussed the case with the resident(s), and reviewed entered orders. I agree with the plan of care as outlined in this note. Time Spent: [address] Bushra MD
[2024-12-26 14:59] LABS: Partial Thromboplastin Time 60.2 Seconds (22.0-36.0)
== END 2024-12-26 15:17 | disposition home or self-care (01) | DRG 281 ==
LOC: SERX 11:34 → SERHOLD 12:24 → S2NX 22:57
PROVIDERS: Student in an Organized Health Care Education/Training Program; Admitting Provider Student in an Organized Health Care Education/Training Program; Emergency Provider Emergency Medicine; PCP Family Medicine; Visit Provider Student in an Organized Health Care Education/Training Program
DX: I21.4 Non-ST elevation (NSTEMI) myocardial infarction (principal); N39.0 Urinary tract infection, site not specified; Q21.10 Atrial septal defect, unspecified; N18.31 Chronic kidney disease, stage 3a; I12.9 Hypertensive chronic kidney disease with stage 1 through stage 4 chronic kidney disease, or unspecified chronic kidney disease; E03.9 Hypothyroidism, unspecified; Q85.01 Neurofibromatosis, type 1; Z86.73 Personal history of transient ischemic attack (TIA), and cerebral infarction without residual deficits; Z66 Do not resuscitate; Z79.01 Long term (current) use of anticoagulants; Z79.82 Long term (current) use of aspirin; Z79.890 Hormone replacement therapy; Z79.899 Other long term (current) drug therapy; Z88.6 Allergy status to analgesic agent
CPT/HCPCS: 36415; 70450; 71045; 80053; 80061; 81001; 82010; 82248; 83605; 83690; 83735; 83880; 84100; 84145; 84443; 84484; 85025; 85379; 85610; 85652; 85730; 86140; 87040; 87077; 87086; 87186; 87502; 87811; 93005; 93306; 96361; 96365; 96366; 99283; J0696; J1644; J7030; A9270